=== PATIENT | female | born 1960 | race Caucasian/White ===

== ENCOUNTER → 2017-06-10 | Outpatient (CLI) | payer OTHER | LOC: FIMAGING 12:03 | PROVIDERS: ATTEND Family Medicine | DX: Z12.31 Encounter for screening mammogram for malignant neoplasm of breast (principal) | CPT/HCPCS: G0202 ==

== ENCOUNTER → 2018-11-10 | Outpatient (CLI) | payer OTHER | LOC: FIMAGING 13:59 | PROVIDERS: ATTEND Family Medicine | DX: Z12.31 Encounter for screening mammogram for malignant neoplasm of breast (principal) ==

== ENCOUNTER → 2019-04-24 | Outpatient (CLI) | payer OTHER | LOC: GIMAGING 14:19 ==